=== PATIENT | male | born 1960 | race Caucasian/White ===

== ENCOUNTER 2018-02-12 17:48 | Inpatient (IN) | payer OTHER ==
[~2018-02-12] VITALS: Ht 177.8 cm; Wt 81.9 kg
--- NOTE | 2018-02-12 18:20 | ED GENERAL ADULT ---
History of Present Illness General Chief Complaint: Neuro Symptoms/ Deficit Stated Complaint: BIBA LEFT SIDE NUMBNESS/SLURRED SPEECH Source: patient Exam Limitations: no limitations Vital Signs & Intake/Output Vital Signs & Intake/Output Vital Signs Date Time Temp Pulse Resp B/P B/P Pulse O2 O2 Flow FiO2 Mean Ox Delivery Rate 02/128 73 20 115/66 97 Room Air 02/12 1805 Room Air 02/12 1800 97.6 71 16 125/81 97 Room Air Allergies Coded Allergies: No Known Allergies (02/12/18) Reconcile Medications No Known Home Medications Triage Note: BIBA FROM [facility] LEFT SIDED NUMBNESS AND TINGLING WITH APHASIA LASTING APPROXIMATELY 20 MINUTES (SYMPTOMS HAPPENED SHORTLY AFTER EXERCISE.) UPON ARRIVAL PT WITHOUT NEURO DEFICITS. SPEECH CLEAR, NO NUMBNESS, TINGLING OR WEAKNESS. AMBULATING IN ROOM STEADY GAIT. FINGERSTICK 89 PT DENIES PMH, HAS NOT SEEN PCP IN 9 YEARS. Triage Nurses Notes Reviewed? yes Onset: Abrupt Duration: minute(s): Timing: recent history HPI: 02/12/18 57-year-old male presents to the emergency department for sudden onset of slurred speech left upper extremity paresthesias and left lower extremity weakness. He said he went to the gym today and then after the GYM at approximately 4 PM he had an episode of left upper extremity paresthesias, left lower extremity weakness, and inability to speak. He said the episode lasted approximately 15 minutes. He denies chest pain, shortness of breath, headache or other complaints. (Anastacio Lepe DO) Past History Travel History Traveled to [place] past 21 day No Medical History Any Pertinent Medical History? see below for history Neurological: NONE EENT: NONE Cardiovascular: NONE Respiratory: NONE Gastrointestinal: NONE Hepatic: NONE Renal: NONE Musculoskeletal: NONE Psychiatric: NONE Endocrine: NONE Blood Disorders: NONE Cancer(s): NONE Surgical History Surgical History: none Psychosocial History What is your primary language Swedish Tobacco Use: Never used Family History Hx Contributory? No (Anastacio Lepe DO) Review of Systems Review of Systems Constitutional: Denies: fever. EENTM: Denies: visual changes. Respiratory: Denies: short of breath. Cardiovascular: Denies: chest pain. GI: Denies: abdominal pain. Genitourinary: Reports: no symptoms. Musculoskeletal: Reports: no symptoms. Skin: Reports: no symptoms. Neurological/Psychological: Reports: see HPI. Hematologic/Endocrine: Reports: no symptoms. Immunologic/Allergic: Reports: no symptoms. (Anastacio Lepe DO) Physical Exam Physical Exam General Appearance: well developed/nourished, alert, awake, anxious, mild distress Head: atraumatic, normal appearance Eyes: Bilateral: normal appearance, PERRL, EOMI. Ears, Nose, Throat: normal pharynx, normal ENT inspection Neck: normal inspection, supple Respiratory: normal breath sounds, chest non-tender, no respiratory distress Cardiovascular: regular rate/rhythm Peripheral Pulses: 4+ radial (R), 4+ radial (L) Gastrointestinal: soft, non-tender Back: normal range of motion Extremities: normal inspection Neurologic/Psych: no motor/sensory deficits, awake, alert, oriented x 3 Skin: intact, normal color, warm/dry Core Measures ACS in differential dx? No CVA/TIA Diagnosis: Yes NIH Stroke Scale (24 Hours) NIH Stroke Scale (24 Hours) Response Value Level of Consciousness alert 0 LOC Questions answers both correctly 0 LOC Commands obeys both correctly 0 Visual Escoto no visual loss 0 Facial Paresis normal 0 Motor Arm - Left no drift 0 Motor Arm - Right no drift 0 Motor Leg - Left no drift 0 Motor Leg - Right no drift 0 Limb Ataxia no ataxia 0 Sensory normal 0 Best Language no aphasia 0 Dysarthria normal articulation 0 Extinction and Inattention no neglect 0 Total 0 Date Last Known Well: 02/12/18 Time Last Known Well: 1600 Symptom start date: 02/12/18 Symptom start time: 1601 Reason tPA not ordered Medical Contraindication Swallow Evaluation Pass Swallow eval date 02/12/18 Swallow eval time 1924 Sepsis Present: No Sepsis Focused Exam Completed? No (Anastacio Lepe DO) Progress Differential Diagnoses I considered the following diagnoses in my evaluation of the patient: [CVA, TIA, Lyme disease, cervical radiculopathy,] Plan of Care: Orders Procedure Date/time Status Regular Diet 02/13 B Active OXYGEN SETUP (GEN) 02/12 1957 Active Saline Lock 02/12 1957 Active Admit to inpatient 02/12 1957 Active Vital Signs 02/12 1957 Active Activity/Ambulation 02/12 1957 Active Code Status 02/12 1957 Active Add-on Test (ER Only) 02/12 1947 Active TROPONIN LEVEL 05/1849 Active Saline Lock 02/12 1821 Active PROTHROMBIN TIME 02/12 1821 Complete LYME TITRE 02/12 1821 Active COMPREHENSIVE METABOLIC PANEL 02/12 1821 Active CBC WITHOUT DIFFERENTIAL 02/12 1821 Complete EKG 02/12 1821 Active Patient Data 02/12 1644 Active Laboratory Tests 02/12/181849: Anion Gap 11, Estimated GFR > 60, BUN/Creatinine Ratio 24.0, Glucose 102 H, Calcium 9.8, Total Bilirubin 0.5, AST 29, ALT 36, Alkaline Phosphatase 59, Troponin I Pending, Total Protein 7.8, Albumin 4.4, Globulin 3.4, Albumin/ Globulin Ratio 1.3, PT 12.7 H, INR 1.16, CBC w Diff NO MAN DIFF REQ, RBC 4.90, MCV 85.4, MCH 28.6, MCHC 33.5, RDW 14.7 H, MPV 8.1, Gran % 60.3, Lymphocytes % 26.2, Monocytes % 7.7, Eosinophils % 4.9, Basophils % 0.9, Absolute Granulocytes 3.5, Absolute Lymphocytes 1.5, Absolute Monocytes 0.4, Absolute Eosinophils 0.3, Absolute Basophils 0.1, Lyme Disease Antibody Pending Initial ED EKG: NSR (Anastacio Lepe DO) Departure Departure Disposition: STILL A PATIENT Condition: Stable Clinical Impression Primary Impression: TIA (transient ischemic attack) Referrals: Patient Has No Primary Care Dr (PCP/Family) Departure Forms: Customer Survey General Discharge Information Prescriptions: Current Visit Scripts No Known Home Medications Comments Patient's neurological exam is currently completely normal. His symptoms are classic for TIA. He'll be admitted to the hospital for further care. He will be signed out to Dr. Saez at 7 PM (Anastacio Lepe DO) Admission Note Spoke With: Alexy Enriquez MD Documentation of Exam: Documentation of any treatments & extenuating circumstances including Concerns Regarding Discharge (functional status, medication knowledge or non-compliance, living conditions, etc.) that warrant an admission rather than observation: Cardiac monitoring serial neurologic exam neurology evaluation MRI carotid studies medication adjustment continuing care discharge planning (Palomo Saez MD) Critical Care Note Critical Care Note Critical Care Time: 30-74 min (Anastacio Lepe DO)
--- NOTE | 2018-02-12 18:56 | CT SCAN REPORT ---
EXAMINATION: CT HEAD WITHOUT CONTRAST CLINICAL INFORMATION: Left-sided weakness COMPARISON: None TECHNIQUE: Contiguous axial imaging was performed from the skull base to vertex without intravenous administration of contrast. DLP: 618 mGy-cm FINDINGS: There is no evidence of acute intracranial hemorrhage or territorial infarction. No abnormal mass effect or midline shift is seen. Irene to white matter differentiation is well preserved. No extra-axial fluid collections are identified. The ventricles are normal in size. There is no abnormal attenuation within the brain parenchyma. The osseous structures and soft tissues are normal. Minimal mucosal thickening of the left maxillary sinus IMPRESSION: No acute intracranial pathology.
[2018-02-12 19:07] LABS: ABSOLUTE BASOPHIL COUNT 0.1 /CUMM (0.0-0.2); ABSOLUTE EOSINOPHIL COUNT 0.3 /CUMM (0.0-0.7); ABSOLUTE GRANULOCYTE CT 3.5 /CUMM (1.4-6.5); ABSOLUTE LYMPH COUNT 1.5 /CUMM (1.2-3.4); ABSOLUTE MONOCYTE COUNT 0.4 /CUMM (0.10-0.60); BASOPHIL % 0.9 % (0.0-2.0); EOSINOPHIL % 4.9 % (0-5); GRANULOCYTE % 60.3 % (42.2-75.2); HEMATOCRIT 41.8 % (42-52); MEAN CORPUSCULAR HGB 28.6 PG (27.0-31.0); MEAN CORPUSCULAR HGB CONC 33.5 G/DL (33.0-37.0); MEAN CORPUSCULAR VOLUME 85.4 FL (80.0-94.0); MEAN PLATELET VOLUME 8.1 FL (7.4-10.4); PLATELET COUNT 244 /CUMM (130-400); RBC DISTRIBUTION WIDTH 14.7 % (11.5-14.5); WHITE BLOOD CELL COUNT 5.8 /CUMM (4.8-10.8)
[2018-02-12 19:09] LABS: PT 12.7 SEC (9.4-12.5)
--- NOTE | 2018-02-12 20:36 | History & Physical ---
Carey SCHAFFER,Neris 02/12/182034: General Information and HPI MD Statement: I have seen and personally examined ROSANNERENMELANIE and documented this H&P. The patient is a 57 year old M who presented with a patient stated chief complaint of [transient numbness of the left side of the body]. Source of Information: patient Exam Limitations: no limitations History of Present Illness: 57 years old male with past medical history of hyperlipidemia who was brought in by ambulance for chief complaint of left-sided timgling and slurred speech which started at 4 PM after the patient finished his workout he had core exercise. The patient reported that he was sitting down, he tried to get up when he felt dizzy and lightheaded after which he started feeling tingling in his left hand which spread to his left arm. The patient then tried to get up when he felt that his left leg is weak and giving away. He felt that he will fall down if he does not hold to a chair. The patient called his and he noticed that he was a slurring his speech was trouble pronouncing words. Patient denied any difficulty finding words or understanding the conversation. Patient was concerned that he might be having stroke and he called 911. By the time the EMT reached his place he did not have any symptoms. Patient denies any similar episodes in the past. Patient also denies any shortness of breath, chest pain, palpitation, blurred vision, urine or stool incontinence. He also denies any loss of consciousness during this episode. The patient reports that he is feeling healthy in general and is consistent with his workout. The patient primary care doctor is Dr. West however he did not see him for the past 9 years. The last time he saw him he told him that he has hyperlipidemia however the patient refused to take Statin. The patient only takes [id number] magnesium and milk thistle for liver health. Vitals on admission: Blood pressure 122/80, pulse 80, temperature 98.3, pulse ox 98 on room air, respiratory 22 Labs on admission: CBC was normal with WBC 5.8 hemoglobin 15, platelet 244, BEP was normal with sodium 138, potassium 4.3, BUN 24, creatinine 1, glucose 102, PT 12.7, INR 1.16, Lyme titer was pending Head CT was normal Allergies/Medications Allergies: Coded Allergies: No Known Allergies (02/12/18) Home Med list No Known Home Medications Past History Travel History Traveled to [place] past 21 day No Medical History Neurological: NONE EENT: NONE Cardiovascular: hyperlipidemia Respiratory: NONE Gastrointestinal: NONE Hepatic: NONE Renal: NONE Musculoskeletal: NONE Psychiatric: NONE Endocrine: NONE Blood Disorders: NONE Cancer(s): NONE Surgical History Surgical History: none Past Family/Social History Family History Relations & Conditions if any FATHER Relation not specified for: FH: stroke Psychosocial History Where do you live? Home Smoking Status: Former Smoker ETOH Use: occasional use Illicit Drug Use: occasional cannabis Functional Ability ADLs Independent: dressing, eating, toileting, bathing. Ambulation: independent IADLs Independent: shopping, housework, finances, food prep, telephone, transportation , medication admin. Review of Systems Review of Systems Constitutional: Denies: no symptoms. Cardiovascular: Denies: chest pain, edema, orthopena, palpitations, peripheral edema, syncope. Respiratory: Denies: cough, hemoptysis, orthopnea, short of breath, sputum production, stridor. GI: Denies: no symptoms. Genitourinary: Denies: no symptoms. Musculoskeletal: Denies: no symptoms. Neurological/Psychological: Denies: confusion, headache, numbness, paresthesia, tingling, tremors. Exam & Diagnostic Data Last 24 Hrs of Vital Signs/I&O Vital Signs Date Time Temp Pulse Resp B/P B/P Pulse O2 O2 Flow FiO2 Mean Ox Delivery Rate 02/12 2245 98.3 80 22 122/80 98 02/12 2134 97.5 71 20 141/73 97 02/12 2044 Room Air 02/12 1928 73 20 115/66 97 Room Air 02/12 1805 Room Air 02/12 1800 97.6 71 16 125/81 97 Room Air Physical Exam General Appearance Alert, Oriented X3, Cooperative, No Acute Distress Skin No Rashes, No Breakdown, No Significant Lesion HEENT Atraumatic, PERRLA, EOMI, Mucous Membr. moist/pink Neck Supple, No JVD Cardiovascular Regular Rate, Normal S1, Normal S2, No Murmurs Lungs Clear to Auscultation Abdomen Normal Bowel Sounds, Soft, No Tenderness Neurological Normal Speech, Strength at 5/5 X4 Ext, Normal Tone, Sensation Intact, Cranial Nerves 3-12 NL, Reflexes 2+ Extremities No Clubbing, No Cyanosis, No Edema Vascular Normal Pulses Sepsis Peripheral Pulse Location: Radial Sepsis Peripheral Pulse Exam: Normal Assessment/Plan Assessment: 57 years old male with past medical history of hyperlipidemia who was brought in by ambulance for chief complaint of left-sided timgling and slurred speech which started at 4 PM after the patient finished his workout he had core exercise. The patient reported that he was sitting down, he tried to get up when he felt dizzy and lightheaded after which he started feeling tingling in his left hand which spread to his left arm. The patient then tried to get up when he felt that his left leg is weak and giving away. The symptoms lasted only 1520 minutes and completely resolved by the time EMT rechecked the patient home. Most likely his symptoms is due to TIA. NIH score carotid atherosclerosis with showers to the drain is high on the differential giving history of hyperlipidemia. Problem list: Transient ischemic attack Hyperlipidemia Plan: Admit to telemetry Continuous telemetry monitoring Serial troponin EKG Vitals every shift Aspirin 81 (patient refused full dose of aspirin) Atorvastatin 40 mg daily Check lipid profile Echocardiogram Neuro checks every 6 hours Neurology consultation appreciated Carotid Doppler to rule out carotid atherosclerosis PT/OT consultation We will consider cardiology consultation if the patient develop any arrhythmia overnight Full code DVT prophylaxis was subcu Lovenox Regular diet As Ranked By This Provider Problem List: 1. TIA (transient ischemic attack) Core Measures/Misc (06/23) Acute Coronary Syndrome ACS Diagnosis: No Congestive Heart Failure Congestive Heart Failure Diagnosis No Cerebrovascular Accident CVA/TIA Diagnosis: Yes Date Last Known Well: 02/12/18 Time Last Known Well: 1600 Symptom Start Date: 02/12/18 Symptom Start Time: 1601 Swallow Evaluation Pass VTE (View Protocol) VTE Risk Factors Age>40 No Mechanical VTE Prophylaxis d/t N/A MechProphylax Ordered No VTE Pharm Prophylaxis d/t NA PharmProphylax ordered Sepsis (View protocol) Sepsis Present: No Morteza Dennison MD 02/12/18 3949: Resident Review Statement Resident Statement: examined this patient, discussed with editorial intern, agreed with editorial intern, reviewed EMR data (avail), discussed with nursing, reviewed images, amended to note Other Findings: 57-year-old male with no significant past medical history, was brought in by ambulance from home with complaints of left sided tingling, weakness of upper and lower extremity, associated with slurring of speech that lasted about 15 minutes earlier today. According to the patient, he was exercising in his gym ( at home) as usual immediately following which he started having tingling sensation over his left hands progressing towards his arms, and weakness that he felt both on his left upper extremity and lower extremity while he sat down in a chair, associated with dizziness. He called his over phone when he himself noticed slurring of his speech, which made him call 911. By the time paramedics arrived, his symptoms had resolved completely, and he has remained asymptomatic in the ED as well. He does not recall any similar episodes in the past, and denied any chest pain, chest pressure/heaviness, shortness of breath, palpitations, confusion, vision changes, incontinence, tinnitus, decreased hearing, loss of consciousness. He did not skip any meals today. Up until now, he mentions he has been pretty healthy, and he visited his PCP 9 years ago when he was told he had high cholesterol and he has been managing this with his lifestyle only and takes no medications other than occasional magnesium supplement. PMH: HLD not on meds (against statins) PSH: None reported FH: Father had stroke at 52, no other significant family medical condition. SH:He quit smoking cigarettes 20 years ago with history of 10 pack years, and smokes cigars roughly weekly; drinks bourbon 2-3 drinks weekly; uses cannabis occasionally (last used 2 weeks ago); denies any other illicit/recreational drug use. Vitals, labs, EKG as noted above, all within normal limits. ED tele records- uneventful. Patient agreed to taking only a baby dose of aspirin in the ED. NIH stroke scale done- score Zero at the time of interview. Swallow eval- pass. Patient is currently admitted in the telemetry floor for the management of following issues: #Transient ischemic attack, symptoms resolved now Patient's clinical condition, and quick loss of functions within 24 hours suggests the diagnosis of transient ischemic attack. Since the patient has not had medical checkup/investigations since past 9 years, we need to investigate any reversible/irreversible underlying condition predisposing to TIA/stroke. Of note, patient seems agreeable to investigations, but is anxious and reluctant to commit to any long-term medications. * Admit to telemetry floor * Regular vitals monitoring * Telemetry monitoring, to rule out any arrhythmias * NIH stroke scale every 4 hours * Patient took only 81 mg of aspirin in the ED, refused full dose. * Continue aspirin 81 mg * High intensity statin atorvastatin 40 mg starting now, to continue * Carotid Dopplers to rule out carotid stenosis * Echocardiogram to look for structural and functional status of the heart * Neurology consultation * Will not comit to MRI-brain as there is low suspicion of stroke/symptoms resolved within 15-20 min, and the management remains the same for now. Will defer the preference to Neurologist. * Will consider cardiology consultation if patient has arrhythmias or abnormal cardiac studies * PT/OT per TIA/stroke pathway * Trop/EKG trend to rule out ACS #Diet: Regular diet #DVT ppx: SQ Lovenox #Code status: Full code #Person to notify: (Gloria) #IV access: Peripheral Alexy Enriquez 02/12/18 2346: Attending MD Review Statement Attending Statement Attending MD Statement: examined this patient, discuss w/resident/PA/[employer], agreed w/resident/PA/[employer], reviewed EMR data (avail), reviewed images, amended to note Attending Assessment/Plan: CC: Transient Left sided weakness and slurry speech PMH: None Patient was brought in ER through EMS for sudden onset left-sided numbness and weakness along with slurry speech. Patient mentions that he finished his regular workout with upper body exercise and core body exercises, followed by it he was sitting on the couch then he noticed dizziness and lightheadedness followed by tingling and numbness in right upper extremity and right lower extremity, he tried to stand up but then he realized that left leg was weaker than usual, he called his and noticed that his speech was slightly so he called EMS immediately. By the time EMS came his symptoms had resolved, symptoms lasted up to 15-20 minutes. He did not notice any palpitation, shortness of breath, chest pain, blurry vision, double vision, incontinence during this episode. No falls. Vitals: Temperature 97.6, pulse 71, RR 16, blood pressure 125/81, saturating 97% on room air. On exam: A O 3, cooperative, no acute distress, neck supple, JVD normal, no lymphadenopathy, mucosa moist complete neurological examination unremarkable, NIHSS 0, no dependent edema, no obvious skin rashes or inflammation CVS: S1-S2, RRR. RS: Clear to auscultate bilaterally. Abdomen: Soft, NT, ND, bowel sounds present. CT head: No acute intracranial pathology. Assessment and plan 57-year-old male with no significant past medical history, ex smoker presented in ER for transient left upper extremity and lower extremity tingling and numbness followed by left leg weakness and slurred speech which lasted 15-20 minutes. He does not have any risk factors, family history significant for father having stroke at the age of 52 but father was chain smoker and alcoholic. Patient has not seen physician in the 9 years, 9 years back he was suggested to take statin for high cholesterol but patient does not want to take any medications. Complete physical examination is unremarkable. Symptoms could be TIA or it could be dehydration with strenuous exercising (less likely). We will obtain workup for TIA to prevent any further episode, get neurology involved. We Will get MRI of brain only suggested by neurology. + Suspected TIA - Admit to telemetry - Continuous telemetry monitoring - Serial troponin and EKG - 2-D echocardiogram in a.m. - DVT prophylaxis - Obtain lipid profile - Continue aspirin 160 now and 81 daily and atorvastatin 40 mg - Neurologic consult - Serial neuro checks - Carotid Dopplers
[2018-02-12 22:45] VITALS: BP 122/80
--- NOTE | 2018-02-12 23:47 | Admission Certification ---
Admission Certification Certification Statement - As attending physician, I certify that at the time of - admission, based on clinical presentation, severity of - symptoms, need for further diagnostic testing and - therapeutic interventions, and risk of adverse outcomes - without in-hospital treatment, in my clinical assessment, - this patient requires an acute hospital stay for a minimum - of two nights or longer. I have also considered psychsocial - factors such as support system, advanced age, financial - issues, cognitive issues, and failed out-patient treatments, - past re-admission history, safety of patient, and lack of - compliance as applicable. Specific rationale supporting this admission is: Suspected TIA
[2018-02-13 07:01] VITALS: BP 126/80
--- NOTE | 2018-02-13 07:01 | PN- Housestaff ---
Heraclio SCHAFFER,Ondina 02/13/18 0701: Subjective Follow-up For: tia Subjective: Saw pt at bedside this AM. No acute overnight events. No complaints. He is at his baseline with no deficits. Review of Systems Constitutional: Denies: chills, weakness. EENTM: Reports: no symptoms. Cardiovascular: Denies: chest pain, palpitations. Respiratory: Denies: see HPI, cough, short of breath. Gastrointestinal: Reports: no symptoms. Musculoskeletal: Reports: no symptoms. Objective Last 24 Hrs of Vital Signs/I&O Vital Signs Date Time Temp Pulse Resp B/P B/P Pulse O2 O2 Flow FiO2 Mean Ox Delivery Rate 02/13 07 97.5 58 18 126/80 98 Room Air 02/12 2245 98.3 80 22 122/80 98 02/12 2134 97.5 71 20 141/73 97 02/12 2044 Room Air 02/12 1928 73 20 115/66 97 Room Air 02/12 1805 Room Air 02/12 1800 97.6 71 16 125/81 97 Room Air Intake & Output 02/13 0800 02/13 0000 02/12 1600 Intake Total 440 110 Output Total Balance 440 110 Intake, Oral 440 110 Patient 81.902 kg 82.696 kg Weight Weight Bed scale Measurement Method Physical Exam General Appearance: Alert, Oriented X3, Cooperative, No Acute Distress HEENT: Atraumatic, PERRLA, EOMI Neck: Supple Cardiovascular: Regular Rate, Normal S1, Normal S2, No Murmurs Abdomen: Soft, No Tenderness Neurological: Normal Gait, Normal Speech, Sensation Intact, Cranial Nerves 3-12 NL Extremities: No Edema Current Medications: Current Medications Sig/Marisa Start time Last Medication Dose Route Stop Time Status Admin Acetaminophen 650 MG Q6P PRN 02/12 2045 AC PO Acetaminophen 1,000 MG Q6P PRN 02/12 2045 AC IV Aspirin 81 MG DAILY 02/13 900 AC PO Aspirin 81 MG ONCE ONE 02/12 2300 DC 02/12 PO 02/12 230 2323 Aspirin 0 .STK-MED ONE 02/12 1846 DC PO Aspirin 81 MG ONCE ONE 02/12 1830 DC 02/12 PO 02/12 1831 1901 Atorvastatin Calcium 40 MG 1700 02/13 1700 DC PO Atorvastatin Calcium 40 MG 1700 02/12 2245 AC 02/12 PO 2323 Atorvastatin Calcium 80 MG 1700 02/12 2230 DC PO Enoxaparin Sodium 40 MG DAILY 02/13 0900 AC SC Last 24 Hrs of Lab/[place] Results Last 24 Hrs of Labs/Mics: Laboratory Tests 02/13/18 0658: Sodium Pending, Potassium Pending, Chloride Pending, Carbon Dioxide Pending, Anion Gap Pending, BUN Pending, Creatinine Pending, BUN/Creatinine Ratio Pending , Triglycerides Pending, Cholesterol Pending, LDL Cholesterol, Calc Pending, HDL Cholesterol Pending, Cholesterol/HDL Ratio Pending 02/13/18 0100: Troponin I < 0.01 02/12/18 1850: Anion Gap 11, Estimated GFR > 60, BUN/Creatinine Ratio 24.0, Glucose 102 H, Hemoglobin A1c Pending, Calcium 9.8, Total Bilirubin 0.5, AST 29, ALT 36, Alkaline Phosphatase 59, Troponin I < 0.01, Total Protein 7.8, Albumin 4.4, Globulin 3.4, Albumin/Globulin Ratio 1.3, PT 12.7 H, INR 1.16, CBC w Diff NO MAN DIFF REQ, RBC 4.90, MCV 85.4, MCH 28.6, MCHC 33.5, RDW 14.7 H, MPV 8.1, Gran % 60.3, Lymphocytes % 26.2, Monocytes % 7.7, Eosinophils % 4.9, Basophils % 0.9, Absolute Granulocytes 3.5, Absolute Lymphocytes 1.5, Absolute Monocytes 0.4 , Absolute Eosinophils 0.3, Absolute Basophils 0.1, Lyme Disease Antibody Pending Assessment/Plan Assessment: This is a 57 yo male with PMH of HLD who comes in for CC of right sided weakness , slurring of speech and numbness. His symptoms resolved in 20 min and he has no deficits. Not a candidate for tPA. CT head with no evidence of lesion. Presentation consistent with TIA. Of note, patient seems agreeable to investigations, but is anxious and reluctant to commit to any long-term medications. PLAN: TIA: * Admit to telemetry floor * Telemetry monitoring, to rule out any arrhythmias * NIH stroke scale every 4 hours * Patient took only 81 mg of aspirin in the ED, refused full dose so continue aspirin 81 mg * Statin * Carotid Dopplers * Echocardiogram * Neurology consultation * Trop/EKG trend to rule out ACS #Diet: Regular diet #DVT ppx: SQ Lovenox #Code status: Full code Problem List: 1. TIA (transient ischemic attack) Pain Ratin Pain Location: none Pain Goal: Remain pain free Pain Plan: none Tomorrow's Labs & Rationales: cbc bep Bekah Lua 02/13/18 1027: Attending MD Review Statement Attending Statement Attending MD Statement: examined this patient, discuss w/resident/PA/FIRE AND EXPLOSION INVESTIGATOR, agreed w/resident/PA/FIRE AND EXPLOSION INVESTIGATOR, discussed with family, reviewed EMR data (avail), discussed with nursing, discussed with case mgmt, reviewed images, amended to note Attending Assessment/Plan: Patient admitted here for CVA likely TIA. Plan as above and neurology consultation.
--- NOTE | 2018-02-13 14:30 | ULTRASOUND REPORT ---
EXAMINATION: DUPLEX BILATERAL CAROTID ULTRASOUND CLINICAL INFORMATION: TIA with numbness and weakness and dysarthria COMPARISON: None. TECHNIQUE: Duplex bilateral carotid US was performed using real-time ultrasound and Doppler techniques (integrating B-mode 2D vascular images, Doppler spectral analysis and color flow Doppler imaging). These techniques were utilized to interrogate the extracranial carotid and vertebral arteries bilaterally. The degree of stenosis is based off criteria similar to NASCET. FINDINGS: 1. On the right: Plaque is present at the carotid bifurcation but velocity measurements are normal and do not suggest a stenosis of greater than 50% diameter reduction in the right ICA. The right ECA demonstrates a mild stenosis with peak systolic velocity of under 200 cm/s. The vertebral artery is patent demonstrating antegrade flow. 2. On the left: Plaque is present at the carotid bifurcation but velocity measurements are normal and do not suggest a stenosis of greater than 50% diameter reduction in the left ICA. The left external carotid artery shows no significant stenosis. The vertebral artery is patent demonstrating antegrade flow. IMPRESSION: Plaque is present in the internal carotid arteries but velocity measurements are normal and there is no evidence to suggest a hemodynamically significant stenosis of greater than 50% diameter reduction.
[2018-02-13 14:52] VITALS: BP 110/80
--- NOTE | 2018-02-13 15:42 | Patient Discharge Instructions ---
Discharge Instructions General Discharge Information You were seen/treated for: TIA You had these procedures: 1. ECHO 2. Carotid US Watch for these problems: 1. similar TIA episode 2. chest pain 3. weakness that is one sided 4. slurring of speech 5. syncope Special Instructions: 1. please start taking ASA 81 2. Please follow up with your PCP 3. Please consider taking statin for its protective benefit Diet Continue normal diet: No Recommended Diet: Heart Healthy Activity Full Activity/No Limits: Yes Acute Coronary Syndrome Inclusion Criteria At DC or during hospital stay patient has or had the following: ACS DIAGNOSIS No Discharge Core Measures Meds if any: Prescribed or Continued at Discharge Meds if any: NOT Prescribed or Continued at Discharge Congestive Heart Failure Inclusion Criteria At DC or during hospital stay patient has or had the following: CHF DIAGNOSIS No Discharge Core Measures Meds if any: Prescribed or Continued at Discharge Meds if any: NOT Prescribed or Continued at Discharge Cerebrovascular accident Inclusion Criteria At DC or during hospital stay patient has or had the following: CVA/TIA Diagnosis Yes Discharge Core Measures Meds if any: Prescribed or Continued at Discharge Meds if any: NOT Prescribed or Continued at Discharge Venous thromboembolism Inclusion Criteria VTE Diagnosis No VTE Type NONE VTE Confirmed by (Test) NONE Discharge Core Measures - Per Current guidelines, there needs to be overlap - treatment for the first 5 days of Warfarin therapy. - If discharged on Warfarin prior to 5 days of - overlap therapy, the patient will need to be - assessed for post discharge needs including - *Post discharge parental anticoagulation - *Warfarin and/or parental anticoagulation education - *Follow up date to check INR post discharge At least 5 days overlap therapy as Inpatient No Meds if any: Prescribed or Continued at Discharge Note: Overlap Therapy is Warfarin and Anticoagulant Meds if any: NOT Prescribed or Continued at Discharge
[2018-02-13] MEDS ORDERED: ATORVASTATIN CA40 M1 PO (15:49)
[2018-02-13] MEDS ORDERED: ASPIRIN81 M4 PO (15:49)
--- NOTE | 2018-02-13 15:56 | Cons- Neurology ---
General Information and HPI Consulting Request Date of Consult: 02/13/18 Requested By: Bekah Lua MD Reason for Consult: Slurred speech Source of Information: patient Exam Limitations: no limitations History of Present Illness: This is a 57 year old right handed man who has a history of untreated hyperlipidemia who presented to the hospital yesterday due to a 15 minute event consisting of slurred speech and left sided numbness and tingling in his hand and mouth. EMS was called but by the time they got there it resolved. He ended up coming to the hospital anyway. No recurrence. He has never had these type of symptoms before. Allergies/Medications Allergies: Coded Allergies: No Known Allergies (02/12/18) Home Med List: Aspirin (Aspirin*) 81 MG TAB.CHEW 1 TAB PO DAILY CAD Atorvastatin Calcium 40 MG TABLET 1 TAB PO 1700 HYPERLIPIDEMIA Current Medications: Current Medications Sig/Marisa Start time Last Medication Dose Route Stop Time Status Admin Acetaminophen 650 MG Q6P PRN 02/12 2045 AC PO Acetaminophen 1,000 MG Q6P PRN 02/12 204 AC IV Aspirin 81 MG DAILY 02/13 900 AC PO Aspirin 81 MG ONCE ONE 02/12 2300 DC 02/12 PO 02/12 2301 2323 Aspirin 0 .STK-MED ONE 02/12 1846 DC PO Aspirin 81 MG ONCE ONE 02/12 1830 DC 02/12 PO 02/12 1831 1901 Atorvastatin Calcium 40 MG 1700 02/13 1700 DC PO Atorvastatin Calcium 40 MG 1700 02/12 2245 AC 02/12 PO 2323 Atorvastatin Calcium 80 MG 1700 02/12 2230 DC PO Enoxaparin Sodium 40 MG DAILY 02/13 900 [facility] Review of Systems Review of Systems: As per HPI. Past History Travel History Traveled to [place] past 21 day No Medical History Blood Transfusion Hx: No Neurological: NONE EENT: NONE Cardiovascular: hyperlipidemia Respiratory: NONE Gastrointestinal: NONE Hepatic: NONE Renal: NONE Musculoskeletal: NONE Psychiatric: NONE Endocrine: NONE Blood Disorders: NONE Cancer(s): NONE Surgical History Surgical History: 1 Family History Relations & Conditions If Any: FATHER Relation not specified for: FH: stroke Psychosocial History Where Do You Live? Home Services at Home: None Smoking Status: Former Smoker ETOH Use: occasional use Illicit Drug Use: occasional cannabis Functional Ability ADLs Independent: dressing, eating, toileting, bathing. Ambulation: independent IADLs Independent: shopping, housework, finances, food prep, telephone, transportation , medication admin. Exam & Diagnostic Data Vital Signs and I&O Vital Signs Date Time Temp Pulse Resp B/P B/P Pulse O2 O2 Flow FiO2 Mean Ox Delivery Rate 02/13 1452 97.8 60 20 110/80 98 Room Air 02/13 0701 97.5 58 18 126/80 98 Room Air 02/12 2245 98.3 80 22 122/80 98 02/12 2134 97.5 71 20 141/73 97 02/12 2044 Room Air 02/12 1928 73 20 115/66 97 Room Air 02/12 1805 Room Air 02/12 1800 97.6 71 16 125/81 97 Room Air Intake & Output 02/13 1600 02/13 0800 02/13 0000 Intake Total 600 440 110 Output Total Balance 600 440 110 Intake, Oral 600 440 110 Patient 181 lb 182 lb Weight Weight Bed scale Measurement Method Physical Exam: General: The patient is in no distress. Pleasant and cooperative. MSE: Alert and oriented 3. Good attention and concentration. Good short-term memory and fund of knowledge reflected through our conversation. Language is fluent with good comprehension and repetition. Cardiovascular: S1 and S2 are normal, regular rate and rhythm, and normal pedal pulses. Vision: Fundoscopic exam does not reveal any abnormalties. Visual wilson are intact. Neurological: Extra ocular movements intact, ROMAN, face is symmetric, tongue midline, uvula raises equally in the midline, V1-V3 sensation to touch is intact and equal bilaterallty, sternocleidomastoid and trapezius are strong on both sides, muscles of mastication are strong. No dysarthria noted. Motor exam reveals no abnormality of strength. Power is 5-5 throughout the distribution distally and proximally. Sensory exam did not reveal any deficits to touch, temperature, vibration and proprioception. Reflexes are symmetric bilaterally. Cerebellar exam does not reveal any dysmetria. Rapid alternating movements are intact bilaterally. Gait is steady with normal base. Last 48 Hours of Lab Results: Laboratory Tests 02/13 02/13 02/13 0700 0658 0100 Chemistry Sodium (137 - 145 mmol/L) 140 Potassium (3.5 - 5.1 mmol/L) 4.2 Chloride (98 - 107 mmol/L) 103 Carbon Dioxide (22 - 30 mmol/L) 27 Anion Gap (5 - 16) 10 BUN (9 - 20 mg/dL) 16 Creatinine (0.7 - 1.2 mg/dL) 0.9 Estimated GFR (>60 ml/min) > 60 BUN/Creatinine Ratio (7 - 25 %) 17.8 Troponin I (<0.11 ng/ml) Cancelled < 0.01 < 0.01 Triglycerides (<150 mg/dL) 110 Cholesterol (< 200 MG/DL) 571 H LDL Cholesterol, Calc (65 - 129 mg/dL) 237 H HDL Cholesterol (40 - 60 mg/dL) 66 H Cholesterol/HDL Ratio (0.00 - 4.88 %) 8.7 H 05/09 1850 Chemistry Sodium (137 - 145 mmol/L) 138 Potassium (3.5 - 5.1 mmol/L) 4.3 Chloride (98 - 107 mmol/L) 103 Carbon Dioxide (22 - 30 mmol/L) 24 Anion Gap (5 - 16) 11 BUN (9 - 20 mg/dL) 24 H Creatinine (0.7 - 1.2 mg/dL) 1.0 Estimated GFR (>60 ml/min) > 60 BUN/Creatinine Ratio (7 - 25 %) 24.0 Glucose (65 - 99 mg/dL) 102 H Hemoglobin A1c (4.2 - 5.8 %) 5.8 Calcium (8.4 - 10.2 mg/dL) 9.8 Total Bilirubin (0.2 - 1.3 mg/dL) 0.5 AST (17 - 59 U/L) 29 ALT (21 - 72 U/L) 36 Alkaline Phosphatase (< 127 U/L) 59 Troponin I (<0.11 ng/ml) < 0.01 Total Protein (6.3 - 8.2 g/dL) 7.8 Albumin (3.5 - 5.0 g/dL) 4.4 Globulin (1.9 - 4.2 gm/dL) 3.4 Albumin/Globulin Ratio (1.1 - 2.2 %) 1.3 Coagulation PT (9.4 - 12.5 SEC) 12.7 H INR (0.90 - 1.17) 1.16 Hematology CBC w Diff NO MAN DIFF REQ WBC (4.8 - 10.8 /CUMM) 5.8 RBC (4.70 - 6.10 /CUMM) 4.90 Hgb (14.0 - 18.0 G/DL) 14.0 Hct (42 - 52 %) 41.8 L MCV (80.0 - 94.0 FL) 85.4 MCH (27.0 - 31.0 PG) 28.6 MCHC (33.0 - 37.0 G/DL) 33.5 RDW (11.5 - 14.5 %) 14.7 H Plt Count (130 - 400 /CUMM) 244 MPV (7.4 - 10.4 FL) 8.1 Gran % (42.2 - 75.2 %) 60.3 Lymphocytes % (20.5 - 51.1 %) 26.2 Monocytes % (1.7 - 9.3 %) 7.7 Eosinophils % (0 - 5 %) 4.9 Basophils % (0.0 - 2.0 %) 0.9 Absolute Granulocytes (1.4 - 6.5 /CUMM) 3.5 Absolute Lymphocytes (1.2 - 3.4 /CUMM) 1.5 Absolute Monocytes (0.10 - 0.60 /CUMM) 0.4 Absolute Eosinophils (0.0 - 0.7 /CUMM) 0.3 Absolute Basophils (0.0 - 0.2 /CUMM) 0.1 Serology Lyme Disease Antibody (RATIO) 0.29 Imaging/Other Studies: NCHCT: FINDINGS: There is no evidence of acute intracranial hemorrhage or territorial infarction. No abnormal mass effect or midline shift is seen. Irene to white matter differentiation is well preserved. No extra-axial fluid collections are identified. The ventricles are normal in size. There is no abnormal attenuation within the brain parenchyma. The osseous structures and soft tissues are normal. Minimal mucosal thickening of the left maxillary sinus IMPRESSION: No acute intracranial pathology. Carotid Duplex: IMPRESSION: Plaque is present in the internal carotid arteries but velocity measurements are normal and there is no evidence to suggest a hemodynamically significant stenosis of greater than 50% diameter reduction. Assessment/Plan Assessment: This is a pleasant 57-year-old man with an episode consistent with a TIA of the right hemisphere. His main risk factor being hyperlipidemia. Recommendations: Discussed at length with the patient the importance of taking a statin and at least a baby aspirin to prevent future strokes. He is in agreement with that. Once echo is completed the patient can be discharged on atorvastatin 80 mg and aspirin 81 mg, as long as blood pressure is within expected ranges. If blood pressure is high should be afforded lisinopril 10 mg a day. Continue monitoring for atrial fibrillation with telemetry. Follow-up with neurology and cardiology. Consult Acknowledgment - Thank you for your consult request.
--- NOTE | 2018-02-13 21:04 | Event Note ---
Event Note Event Note: Mr. Bucio is adamant about leaving the hospital. He feels that nothing is being done. His echocardiogram although done does not have an official report in the chart. I explained the risks of AMA discharge and also of medication refusal. He remains adamant. AMA form documenting this discharge was completed and placed in the chart.
--- NOTE | 2018-02-14 10:57 | ECHOCARDIOGRAM REPORT ---
MELANIE DUNN Age: 57 : 1960 Gender: M Exam Date: 02/13/2018 10:31 Exam Location: 1 [place] Ht (in): 70 Wt (lb): 180 BSA: 2.02 BP: 122 / 80 Ordering Physician: Morteza Dennison MD Referring Physician: Morteza Dennison MD Technologist: Ramin Ruiz [facility] Room Number: 188-1 Indications: TIA Rhythm: Sinus Technical Quality: Fair, Technically difficult study FINDINGS Left Ventricle Normal size left ventricle. Normal left ventricular ejection fraction estimated at 55-60%. Hypokinetic septum. Right Ventricle Right ventricle not well visualized, grossly normal. Right Atrium Normal right atrial size. Left Atrium Mild left atrial dilatation. Mitral Valve Mitral valve thickened. Mild mitral annular calcification. Trace mitral regurgitation. Aortic Valve Trileaflet aortic valve. Diffuse thickening of the aortic valve cusps with reduced excursion. Mild aortic stenosis. Mild aortic regurgitation. Tricuspid Valve Tricuspid valve not well visualized, grossly normal. Trace to mild tricuspid regurgitation. Pulmonic Valve Structurally normal pulmonic valve. Trace pulmonic regurgitation. Pericardium No pericardial effusion. Great Vessels Mildly dilated proximal ascending aorta (tube). CONCLUSIONS 1. This was a technically difficult examination. 2. Fibrocalcific degeneration is present in the aortic valve with evidence of mild valvular stenosis (PG 15 mmHg; MG 8 mmHg; ESTELITA 1.9 cm2) and mild aortic insufficiency with minimal enlargement of the ascending aorta. 3. Mitral leaflet thickening is present with mild to moderate anular calcification and minimal mitral insufficiency with mild left atrial enlargement. 4. There is no significant pericardial fluid present. 5. The left ventricular chamber size is normal with a normal ejection fraction. There is very mild hypokinesia of the mid to distal septum. There is also atypical thickening of the LV endocardium noted on the apical images. This may be a normal variant but can also be a sign of ischemia or infiltrative disease. 6. The right heart structures are grossly normal. Minimal to mild tricuspid and pulmonic insufficiency are prsesnt with no evidence of pulmonary hypertension. 7. An ill defined echodensity is present in the right atrial cavity which likely represents tangential sectioning of the overlapping ascending aorta. Further evaluation is suggested if clinically indicate. 8. If clinically indicated, a TC might be useful in this patient. Tony Pierson M.D. (Electronically Signed) Final Date: 14 Feb 2018 10:56 MEASUREMENTS (Male / Female) Normal Values 2D ECHO LV Diastolic Diameter PLAX 5.0 cm 4.2 - 5.9 / 3.9 - 5.3 cm LV Systolic Diameter PLAX 2.5 cm 2.1 - 4.0 cm LV Fractional Shortening PLAX 48.9 % 25 - 46 % LV Ejection Fraction 2D Teich 80.1 % IVS Diastolic Thickness 0.9 cm LVPW Diastolic Thickness 0.9 cm LV Relative Wall Thickness 0.4 RV Internal Dim ED PLAX 3.3 cm 1.9 - 3.8 cm LVOT Diameter 2.1 cm Aortic Root Diameter 3.4 cm LA Systolic Diameter LX 3.3 cm 3.0 - 4.0 / 2.7 - 3.8 cm Ascending Aorta Diameter 3.8 cm DOPPLER AV Peak Velocity 194.0 cm/s AV Peak Gradient 15.1 mmHg AV Mean Velocity 130.0 cm/s AV Mean Gradient 8.0 mmHg AV Velocity Time Integral 45.8 cm AI Deceleration [place] 145.0 cm/s AI Peak Velocity 257.0 cm/s AI Pressure Half Time 465.0 ms AI Peak Gradient 26.4 mmHg LVOT Peak Velocity 87.2 cm/s LVOT Peak Gradient 3.0 mmHg LVOT Mean Velocity 58.7 cm/s LVOT Mean Gradient 2.0 mmHg LVOT Velocity Time Integral 24.1 cm LVOT Stroke Volume 83.5 cm AV Area Cont Eq vti 1.8 cm AV Area Cont Eq pk 1.6 cm MV Peak Velocity 95.8 cm/s MV Peak Gradient 3.7 mmHg MV Mean Velocity 57.3 cm/s MV Mean Gradient 2.0 mmHg Mitral E Point Velocity 77.0 cm/s Mitral A Point Velocity 97.2 cm/s Mitral E to A Ratio 0.8 MV PHT Velocity 79.6 cm/s MV Deceleration [place] 220.0 cm/s MV Pressure Half Time 108.5 ms MV Area PHT 2.0 cm MV Deceleration Time 299.0 ms TR Peak Velocity 165.0 cm/s TR Peak Gradient 10.9 mmHg Right Atrial Pressure 5.0 mmHg Pulmonary Artery Systolic Pressu 15.9 mmHg Right Ventricular Systolic Press 15.9 mmHg PV Peak Velocity 75.8 cm/s PV Peak Gradient 2.3 mmHg PV Mean Velocity 51.9 cm/s PV Mean Gradient 1.0 mmHg PV Velocity Time Integral 17.3 cm
--- NOTE | 2018-02-14 12:18 | Event Note ---
Event Note Event Note: On 02/14/2018 at 12:05 pm I spoke with . Korey Bucio via telephone personally and informed about the echocardiogram abnormalities. I offered Dr. Panfilo Pierson' s contact info aso he could schedule an appointment and follow up. Additionally I provided info about My [facility] patient portal so he could access his records and peruse them himself. I impressed importance of continuing ASA and Statin along with follow up w/ Dr. Singh who he saw once bout nine years ago. He acknowledged understanding of the gravity of situation and stated he would follow up.
== END 2018-02-13 21:06 | disposition left against medical advice (07) | DRG 69 ==
LOC: ERH 17:48 → ERHI 19:57 → 1NO 19:57 → ENRESERV 20:42 → ENTRNSPT 21:19 → EDTRNSPTSTS 21:30 → EDTRNSPT 21:30 → 1NO 21:40 → CMPTRNSPT 21:48 → 1NO 02-13 07:25
PROVIDERS: Emergency Medicine; Student in an Organized Health Care Education/Training Program
DX: G45.9 Transient cerebral ischemic attack, unspecified (principal); E78.5 Hyperlipidemia, unspecified; Z53.21 Procedure and treatment not carried out due to patient leaving prior to being seen by health care provider
CPT/HCPCS: 1NP; 86618; 36592; 82436; 93005; 93010; 93306; 97112-GO; 97116-GO; 97161-GP; 99291; J1650; J3490